=== PATIENT | female | born 1985 | race Caucasian/White ===

== ENCOUNTER → 2023-04-24 | Emergency (ER) | payer BC ==
[~2023-04-24] MED LIST: DIAZEPAM 5 MG TABLET ONE; KETOROLAC 30 MG/ML INJ ONE; MORPHINE 4 MG/ML SYR ONE; NA CHLORIDE 0.9% 1,000 ML ONE; ONDANSETRON 4 MG/2 ML VIAL ONE; dexAMETHasone 10 MG/ML VIAL ONE
[2023-04-24 14:16] LABS: Specific Gravity 1.021 (1.005-1.030)
[2023-04-24 14:34] LABS: Absolute Lymphocytes (CBC) 2.1 K/uL (0.7-4.9); Hematocrit 41.7 % (36.0-45.0); Lymphocytes % 24.4 % (15.3-44.8); MCV 92.9 fL (80-100); MPV 7.9 fL (7.6-11.3); Platelets 300 thou/uL (152-406); RBC Red Blood Cell Count 4.49 M/uL (3.86-4.86)
[2023-04-24 14:52] LABS: Albumin 3.9 g/dL (3.4-5.0); Bilirubin Total 1.7 mg/dL (0.2-1.0); Potassium 3.7 mEq/L (3.5-5.1); Protein, Total 7.6 g/dL (6.4-8.2)
--- NOTE | 2023-04-24 15:30 | RAD REPORT ---
EXAM DESCRIPTION: CT - Chest Abdomen Pelvis W Cont - 04/24/2023 2:52 pm CLINICAL HISTORY: Chest and abdominal pain COMPARISON: none TECHNIQUE: Computed axial tomography of the chest, abdomen and pelvis was obtained. 100 cc Isovue-30 0 was administered intravenously. Oral contrast was not requested. This limits evaluation of bowel. All CT scans are performed using dose optimization technique as appropriate and may include automated exposure control or mA/KV adjustment according to patient size. FINDINGS: Some of the images are degraded by patient motion artifact. The lungs are clear No mediastinal or hilar lymphadenopathy. No pleural effusion. No pericardial effusion. 7 millimeter low intermediate density lesion right lobe liver. Spleen, pancreas, adrenals and left kidney are unremarkable. A 1 centimeter right renal cyst No evidence of diverticulitis Normal appendix. 2 centimeter left ovarian cyst. No followup imaging recommended. Small amount of free fluid IMPRESSION: 2 centimeter left ovarian cyst with a small amount of free fluid within the pelvis 7 millimeter hepatic lesion nonspecific. Followup liver ultrasound in 3 months is recommended for re- evaluation
--- NOTE | 2023-04-24 16:07 | EDPHYS ---
Physician Documentation [facility] Name: Carolyn Arellano Age: 37 yrs Sex: Female : 1985 Arrival Date: 04/24/2023 Time: 12:45 Bed 11 Private MD: ED Physician Marcel Newton HPI: 04/24 15:52 This 37 yrs old Female presents to ER via Ambulatory with complaints of Back tahmina Pain. 15:52 The patient presents with pain that is acute, and contusion, and decreased range of tahmina motion. The symptoms are located in the right scapular area, right subscapular area and right mid back. Onset: The symptoms/episode began/occurred today. The pain does not radiate. Associated signs and symptoms: The patient has no apparent associated signs or symptoms. The problem was sustained when lifting a dog and twisting. Modifying factors: The patient symptoms are alleviated by remaining still, specific position, the patient symptoms are aggravated by any movement, standing, walking. Severity of symptoms: At their worst the symptoms were moderate, severe, in the emergency department the symptoms are unchanged. The patient has not experienced similar symptoms in the past. Historical: - Allergies: 13:04 No Known Allergies; iw ROS: 15:56 Constitutional: Negative for fever, chills, and weight loss, Eyes: Negative for injury, tahmina pain, redness, and discharge, ENT: Negative for injury, pain, and discharge, Neck: Negative for injury, pain, and swelling, Cardiovascular: Negative for chest pain, palpitations, and edema, Respiratory: Negative for shortness of breath, cough, wheezing, and pleuritic chest pain, Abdomen/GI: Negative for abdominal pain, nausea, vomiting, diarrhea, and constipation, : Negative for injury, bleeding, discharge, and swelling, MS/Extremity: Negative for injury and deformity, Skin: Negative for injury, rash, and discoloration, Neuro: Negative for headache, weakness, numbness, tingling, and seizure, Psych: Negative for depression, anxiety, suicide ideation, homicidal ideation, and hallucinations, Allergy/Immunology: Negative for hives, rash, and allergies, Endocrine: Negative for neck swelling, polydipsia, polyuria, polyphagia, and marked weight changes, Hematologic/Lymphatic: Negative for swollen nodes, abnormal bleeding, and unusual bruising, 15:56 Back: Positive for decreased range of motion, pain at rest, pain with movement, of the right scapular area, right subscapular area and mid back area, Exam: 15:56 Constitutional: This is a well developed, well nourished patient who is awake, alert, tahmina and in no acute distress. Head/Face: Normocephalic, atraumatic. Eyes: Pupils equal round and reactive to light, extra-ocular motions intact. Lids and lashes normal. Conjunctiva and sclera are non-icteric and not injected. Cornea within normal limits. Periorbital areas with no swelling, redness, or edema. ENT: Nares patent. No nasal discharge, no septal abnormalities noted. Tympanic membranes are normal and external auditory canals are clear. Oropharynx with no redness, swelling, or masses, exudates, or evidence of obstruction, uvula midline. Mucous membranes moist. Neck: Trachea midline, no thyromegaly or masses palpated, and no cervical lymphadenopathy. Supple, full range of motion without nuchal rigidity, or vertebral point tenderness. No Meningismus. Chest/axilla: Normal chest wall appearance and motion. Nontender with no deformity. No lesions are appreciated. Cardiovascular: Regular rate and rhythm with a normal S1 and S2. No gallops, murmurs, or rubs. Normal PMI, no JVD. No pulse deficits. Respiratory: Lungs have equal breath sounds bilaterally, clear to auscultation and percussion. No rales, rhonchi or wheezes noted. No increased work of breathing, no retractions or nasal flaring. Abdomen/GI: Soft, non-tender, with normal bowel sounds. No distension or tympany. No guarding or rebound. No evidence of tenderness throughout. Skin: Warm, dry with normal turgor. Normal color with no rashes, no lesions, and no evidence of cellulitis. MS/ Extremity: Pulses equal, no cyanosis. Neurovascular intact. Full, normal range of motion. Neuro: Awake and alert, GCS 15, oriented to person, place, time, and situation. Cranial nerves II-XII grossly intact. Motor strength 5/5 in all extremities. Sensory grossly intact. Cerebellar exam normal. Normal gait. 15:56 Back: pain, that is moderate, of the left scapular area, right scapular area, left subscapular area, right subscapular area, left mid back, right mid back and right low back, ROM is painful, with all movement, with rotation to the right, with rotation to the left, with flexion, with extension, normal spinal alignment noted, CVA tenderness, is absent, muscle spasm, is not present, 15:56 Musculoskeletal/extremity: DVT Exam: No signs of deep vein thrombosis. no pain, no swelling, no tenderness, negative Homans' sign noted on exam, no appreciated bluish discoloration, no erythema, no increased warmth, Vital Signs: 13:02 BP 154 / 88; Pulse 65; Resp 16; Temp 98; Pulse Ox 100% on R/A; Weight 81.65 kg; Height iw 5 ft. 6 in. ; Pain 4/10; 16:09 BP 106 / 71; Pulse 55; Resp 16; Temp 97.6; Pulse Ox 100% ; iw 13:02 Body Mass Index 29.05 (81.65 kg, 167.64 cm) iw 13:02 Pain Scale: Adult iw MDM: 12:56 Patient medically screened. [facility] 15:58 Differential diagnosis: chronic back pain, Fatigue Fracture Osteoarthritis Renal tahmina Infarction ruptured disc, Scoliosis sprain. Data reviewed: vital signs, nurses notes, lab test result(s), radiologic studies, CT scan. Consideration of Admission/Observation Escalation of care including admission/observation considered. I considered the following discharge prescriptions or medication management in the emergency department Medications were administered in the Emergency Department. See MAR. Test considered but Not performed: EKG: no ekg necessary. Care significantly affected by the following chronic conditions: nothing. 04/24 13:08 Order name: Test, Urine; Complete Time: 15:47 04/24 13:52 Order name: CBC with Diff; Complete Time: 15:47 [facility] 04/24 13:52 Order name: Comprehensive Metabolic Panel; Complete Time: 15:47 [facility] 04/24 13:52 Order name: CT Chest, Abdomen, Pelvis - W/Contrast; Complete Time: 15:47 [facility] Administered Medications: 14:33 Drug: Ondansetron IVP 4 mg IVP once; over 2 minutes Route: IVP; Site: right antecubital;iw 14:33 Drug: Decadron - Dexamethasone IVP 10 mg IVP once Route: IVP; Site: right antecubital; iw 14:33 Drug: Ketorolac IVP 30 mg IVP once Route: IVP; Site: right antecubital; iw 14:37 Drug: NS 0.9% IV 1000 ml IV at 1 bolus Per protocol; 1000 mL bolus Route: IV; Rate: 1 iw bolus; Site: right antecubital; 14:37 Drug: morphine IVP or IV 4 mg IVP once over 4 mins Route: IVP; Infused Over: 4 mins; iw Site: right antecubital; 14:38 Drug: Diazepam PO 10 mg PO once Route: PO; iw Disposition Summary: 04/24/23 16:07 Discharge Ordered Notes: Location: Home tahmina Problem: new tahmina Symptoms: have improved tahmina Condition: Stable tahmina Diagnosis - Unspecified symptoms and signs involving the musculoskeletal system tahmina - Strain of muscle and tendon of back wall of thorax tahmina Followup: tahmina - With: Private Physician - When: 2 - 3 days - Reason: Recheck today's complaints, Continuance of care, Re-evaluation by your physician Discharge Instructions: - Discharge Summary Sheet tahmina - Muscle Strain tahmina - Musculoskeletal Pain tahmina - Thoracic Strain tahmina - Thoracic Strain, [id number] tahmina - Muscle Strain, [id number] tahmina Forms: - Medication Reconciliation Form tahmina - Thank You Letter tahmina - Antibiotic Education tahmina - Prescription Opioid Use tahmina - Patient Portal Instructions tahmina - Leadership Thank You Letter tahmina - Work release form iw Prescriptions: - acetaminophen-codeine 300-30 mg Oral tablet - take 2 tablet ORAL route 4 times per day; 24 tablet; Refills: 0, Product tahmina Selection Permitted - dexamethasone 2 mg Oral tablet - take 1 tablet ORAL route every 12 hours; 10 tablet; Refills: 0, Product tahmina Selection Permitted - diclofenac sodium 50 mg Oral tablet, delayed release (enteric coated) - take 1 tablet ORAL route every 12 hours as needed for pain; 20 tablet; Refills: tahmina 0, Product Selection Permitted - Valium 5 mg Oral Tablet - take 1 tablet ORAL route every 8 hours As needed; 20 tablet; Refills: 0, [facility] Product Selection Permitted Signatures: Dispatcher [employer] Marcel Rodriguez MD MD cha Williams, Irene RN RN iw
--- NOTE | 2023-04-24 16:07 | ER ---
Nurse's Notes [facility] Name: Carolyn Arellano Age: 37 yrs Sex: Female : 1985 Arrival Date: 04/24/2023 Time: 12:45 Bed 11 Private MD: Diagnosis: Unspecified symptoms and signs involving the musculoskeletal system;Strain of muscle and tendon of back wall of thorax Presentation: 04/24 13:02 Chief complaint: Patient states: muscle spasms started around an hour ago , no trauma iw beside carrying dog , pt report pain to mid back from right to left, states spasms hit every few minutes. Coronavirus screen: At this time, the client does not indicate any symptoms associated with coronavirus-19. Ebola Screen: Patient negative for fever greater than or equal to 101.5 degrees Fahrenheit, and additional compatible Ebola Virus Disease symptoms Patient denies exposure to infectious person. Patient denies travel to an Ebola-affected area in the 21 days before illness onset. No symptoms or risks identified at this time. Initial Sepsis Screen: Does the patient meet any 2 criteria? No. Patient's initial sepsis screen is negative. Does the patient have a suspected source of infection? No. Patient's initial sepsis screen is negative. Risk Assessment: Do you want to hurt yourself or someone else? Patient reports no desire to harm self or others. Onset of symptoms was April 24, 2023. 13:02 Method Of Arrival: Ambulatory iw 13:02 Acuity: SASHA 3 iw Historical: - Allergies: 13:04 No Known Allergies; iw Screenin:16 [facility] ED Fall Risk Assessment (Adult) Score/Fall Risk Level 0 - 2 = Low Risk. iw 16:09 Abuse screen: Denies threats or abuse. Denies injuries from another. Nutritional iw screening: No deficits noted. Tuberculosis screening: No symptoms or risk factors identified. Assessment: 13:15 General: Appears in no apparent distress. Behavior is calm, cooperative. Pain: iw Complains of pain in left mid back and right mid back. Neuro: Level of Consciousness is awake, alert, obeys commands, Oriented to person, place, time, situation, Moves all extremities. Full function. Cardiovascular: Patient's skin is warm and dry. Respiratory: Respiratory effort is even, unlabored, Respiratory pattern is regular, symmetrical. GI: Abdomen is non-distended. Derm: Skin is intact, is healthy with good turgor. Musculoskeletal: Range of motion: intact in all extremities, Reports pain in back. 16:09 Reassessment: Patient appears in no apparent distress at this time. Patient states iw feeling better. Patient states symptoms have improved. Vital Signs: 13:02 BP 154 / 88; Pulse 65; Resp 16; Temp 98; Pulse Ox 100% on R/A; Weight 81.65 kg; Height iw 5 ft. 6 in. ; Pain 4/10; 16:09 BP 106 / 71; Pulse 55; Resp 16; Temp 97.6; Pulse Ox 100% ; iw 13:02 Body Mass Index 29.05 (81.65 kg, 167.64 cm) iw 13:02 Pain Scale: Adult iw ED Course: 12:47 Patient arrived in ED. rg4 12:56 Marcel Newton MD is Attending Physician. tahmina 13:04 Triage completed. iw 13:14 Sheela Burciaga, RN is Primary Nurse. iw 13:14 Arm band placed on. iw 14:07 Test, Urine Sent. iw 14:14 Comprehensive Metabolic Panel Sent. bc6 14:14 CBC with Diff Sent. bc6 14:14 Test, Urine Sent. bc6 14:14 Inserted saline lock: 20 gauge in left antecubital area, using aseptic technique. Blood bc6 collected. 14:53 CT Chest, Abdomen, Pelvis - W/Contrast In Process Unspecified. EDMS 16:10 Patient has correct armband on for positive identification. iw 16:58 No provider procedures requiring assistance completed. IV discontinued, intact, iw bleeding controlled, No redness/swelling at site. Pressure dressing applied. Administered Medications: 14:33 Drug: Ondansetron IVP 4 mg IVP once; over 2 minutes Route: IVP; Site: right antecubital;iw 14:33 Drug: Decadron - Dexamethasone IVP 10 mg IVP once Route: IVP; Site: right antecubital; iw 14:33 Drug: Ketorolac IVP 30 mg IVP once Route: IVP; Site: right antecubital; iw 14:37 Drug: NS 0.9% IV 1000 ml IV at 1 bolus Per protocol; 1000 mL bolus Route: IV; Rate: 1 iw bolus; Site: right antecubital; 14:37 Drug: morphine IVP or IV 4 mg IVP once over 4 mins Route: IVP; Infused Over: 4 mins; iw Site: right antecubital; 14:38 Drug: Diazepam PO 10 mg PO once Route: PO; iw Medication: 13:15 VIS not applicable for this client. iw Outcome: 16:07 Discharge ordered by . tahmina 16:58 Discharged to home ambulatory, with family, iw 16:58 Condition: good 16:58 Discharge instructions given to patient, family, Instructed on Demonstrated understanding of instructions, follow-up care, medications, Prescriptions given X 4, 16:58 Patient left the ED. iw Signatures: Dispatcher [employer] EDDE Marcel Newton MD MD cha Williams, Irene, RN RN iw Talia Franklin rg4 Jayleen Umaña bc6 Corrections: (The following items were deleted from the chart) 13:15 13:02 Chief complaint: Patient states: muscle spasms started around an hour ago , no iw trauma beside carrying dog iw
[2023-04-24 18:45] VITALS: BP 106/71; TEMP 97.6; O2SAT 100
== END ==
LOC: ER 12:45
DX: S29.012A Strain of muscle and tendon of back wall of thorax, initial encounter (principal); R29.91 Unspecified symptoms and signs involving the musculoskeletal system; X50.0XXA Overexertion from strenuous movement or load, initial encounter; X50.9XXA Other and unspecified overexertion or strenuous movements or postures, initial encounter; Y93.89 Activity, other specified; Y92.9 Unspecified place or not applicable
CPT/HCPCS: 85025; 36415; 81025; 80053; 71260; 74177; 96375; 96374; 99284; Q9967; J1100; J2405; J7030

== ENCOUNTER 2024-11-22 19:31 | Emergency (ER) | payer BC ==
[2024-11-22] MEDS ORDERED: ONDANSETRON 4 MG (ODT) TAB ONE (20:12)
[2024-11-22] MEDS ORDERED: SMZ./TMP. 800/160 MG TABLET ONE (20:12)
[2024-11-22] MEDS ORDERED: TDAP (DIPHTH,PERTUSS(ACELL),TET VAC) 0.5 ML VIAL IMVAC ONE (20:12)
[2024-11-22] MEDS ORDERED: LIDOCAINE 1% 20 ML MDV ONE ×2 (20:12→21:46)
[2024-11-22] MEDS ORDERED: CEFAZOLIN SODIUM 1 GM/VIAL ONE (20:12)
[2024-11-22] MEDS ORDERED: NA CHLORIDE 0.9% 100 ML ONE (20:13)
[2024-11-22] MEDS ORDERED: KETOROLAC 30 MG/ML INJ ONE (20:13)
--- NOTE | 2024-11-22 21:01 | RAD REPORT ---
Exam:Forearm Right Clinical history: Right forearm pain Findings: No radiopaque foreign body not seen. No fracture noted. Small density abutting the anterior aspect of the distal humerus may represent an exostosis.
--- NOTE | 2024-11-22 21:03 | RAD REPORT ---
Exam:Hand Right 3 View HISTORY: Right hand pain FINDINGS: No fracture or dislocation seen A radiopaque foreign body not seen
[2024-11-22] MEDS ORDERED: LORazepam 2 MG/ML VIAL ONE (21:16)
--- NOTE | 2024-11-22 22:14 | EDPHYS ---
Physician Documentation [facility] Name: Carolyn Arellano Age: 39 yrs Sex: Female : 1985 Arrival Date: 11/22/2024 Time: 19:31 Bed 16 Private MD: ED Physician Toño Randolph HPI: 11/22 19:41 This 39 yrs old Other Race Female presents to ER via Unassigned with complaints of Dog sp4 Bite. 20:05 Right hand injury - dog bite . sp4 11/23 06:14 Patient presents with multiple dog bites to bilateral hands. Patient reports her own sp4 dog accidentally bit her. Patient's dog is vaccinated for rabies.. 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 - Infectious Disease History:: Denies. - Social history:: Smoking status: Patient denies any tobacco usage or history of. Patient uses alcohol, on a daily basis. Patient/guardian denies using street drugs, IV drugs. - Family history:: not pertinent. ROS: 11/23 06:14 Constitutional: Negative for fever, chills, and weight loss, positive for bilateral dog sp4 bites All other systems are negative, Exam: 06:14 Constitutional: This is a well developed, well nourished patient who is awake, alert, sp4 and in no acute distress. Head/Face: Normocephalic, atraumatic. Eyes: Pupils equal round and reactive to light, extra-ocular motions intact. Lids and lashes normal. Conjunctiva and sclera are not injected. Cornea within normal limits. Periorbital areas with no swelling, redness, or edema. ENT: Nares patent. No nasal discharge, no septal abnormalities noted. Tympanic membranes are normal and external auditory canals are clear. Oropharynx with no redness, swelling, or masses, exudates, or evidence of obstruction, uvula midline. Mucous membranes moist. Neck: Trachea midline, no thyromegaly or masses palpated, and no cervical lymphadenopathy. Supple, full range of motion without nuchal rigidity, or vertebral point tenderness. Chest/axilla: Normal chest wall appearance and motion. Nontender with no deformity. No lesions are appreciated. Cardiovascular: Regular rate and rhythm with a normal S1 and S2. No gallops, murmurs, or rubs. No pulse deficits. Respiratory: Lungs have equal breath sounds bilaterally, clear to auscultation and percussion. No rales, rhonchi or wheezes noted. No increased work of breathing, no retractions or nasal flaring. Abdomen/GI: Soft, with normal bowel sounds. No distension or tympany. No guarding or rebound. No evidence of tenderness throughout. Back: No spinal tenderness. No costovertebral tenderness. Skin: Warm, dry with normal turgor. Normal color with no rashes, no lesions, and no evidence of cellulitis. Multiple abrasions and lacerations secondary to dog bite MS/ Extremity: Pulses equal, no cyanosis. Neurovascular intact. Full, normal range of motion. Right index finger laceration from a dog bite, right middle finger laceration secondary to dog bite, left thumb laceration secondary to dog bite. Multiple abrasions as well Neuro: Awake and alert, GCS 15, oriented to person, place, time, and situation. Cranial nerves II-XII grossly intact. Motor strength 5/5 in all extremities. Sensory grossly intact. Psych: Awake, alert, with orientation to person, place and time. Behavior, mood, and affect are within normal limits Vital Signs: 11/22 19:43 BP 122 / 86; Pulse 98; Resp 20; Pulse Ox 100% ; Pain 2/10; jj7 22:11 BP 106 / 67; Pulse 72; Resp 20; Pulse Ox 100% ; Weight 68.04 kg; Height 5 ft. 6 in. ; j7 22:11 Body Mass Index 24.21 (68.04 kg, 167.64 cm) [facility] 19:43 Pain Scale: Adult [facility] Janis Coma Score: 11/23 06:14 Eye Response: spontaneous(4). Motor Response: obeys commands(6). Verbal Response: sp4 oriented(5). Total: 15. Laceration: 11/22 22:08 Wound Repair of 5cm ( 2.0in ) subcutaneous laceration to dorsal aspect of middle sp4 phalanx of right middle finger and dorsal aspect of proximal phalanx of right middle finger - Right middle finger ulnar side 5 cm long. Irregularly shaped.. Minimal bleeding noted.. Gross contamination.. Distal neuro/vascular/tendon intact. Anesthesia: Digital block administered with 10 mls of 1% lidocaine. Wound prep: Extensive cleansing by me, Copious irrigation. Skin closed with 13 6-0 Prolene using interrupted sutures and sterile technique. Dressed with 4x4's, Kerlix, non-adherent dressing. Patient tolerated well. 22:08 Wound Repair of 1cm ( 0.4in ) subcutaneous laceration to dorsal aspect of middle sp4 phalanx of right index finger. Irregularly shaped.. Gross contamination.. Distal neuro/vascular/tendon intact. Anesthesia: Wound infiltrated with 2 mls of 1% lidocaine. Wound prep: Moderate cleansing by me, Copious irrigation. Skin closed with 2 6-0 Prolene using interrupted sutures and sterile technique. Dressed with 4x4's, Kerlix, non-adherent dressing. Patient tolerated well. 22:08 Wound Repair of 1cm ( 0.4in ) subcutaneous laceration to palmar aspect of distal sp4 phalanx of left thumb. Irregularly shaped.. Minimal bleeding noted.. Gross contamination.. Distal neuro/vascular/tendon intact. Anesthesia: Wound infiltrated with 5 mls of 1% lidocaine. Wound prep: Moderate cleansing by me, Copious irrigation. Skin closed with 2 4-0 Prolene using interrupted sutures and sterile technique. Dressed with 4x4's, Kerlix, non-adherent dressing. Patient tolerated well. MDM: 20:05 Medical Screening Exam initiated 11/23 06:14 Differential diagnosis: superficial laceration, tendon injury, vascular injury, sp4 cellulitis, Puncture wound. Rabies Status: Rabies immunization is not indicated. Data reviewed: vital signs, nurses notes, old medical records, radiologic studies, plain films. Consideration of Admission/Observation Escalation of care including admission/observation considered. ED course: Lacerations repaired. Patient stable for discharge home. Advised suture removal after 14 days. Patient prescribed Bactrim and Keflex for wound infection prophylaxis. 11/22 20:04 Order name: Hand Right 3 View XRAY; Complete Time: 21:11 sp4 11/22 20:05 Order name: Forearm Right XRAY; Complete Time: 21:11 sp4 11/22 20:00 Order name: Saline Lock; Complete Time: 20:58 sp4 11/22 20:00 Order name: Dressing - Wound; Complete Time: 22:14 sp4 11/22 20:00 Order name: Gloves, Sterile; Complete Time: 20:03 sp4 11/22 20:00 Order name: Setup Suture Tray; Complete Time: 20:03 sp4 Administered Medications: 11/22 20:23 Drug: Trimethoprim-Sulfamethoxazole PO (160 mg-800 mg (DS) 1 tablet PO once Route: PO; me1 20:59 Follow up: Response: No adverse reaction me1 20:23 Drug: Ondansetron PO 4 mg PO once Route: PO; me1 20:58 Follow up: Response: No adverse reaction; Nausea is decreased me1 20:23 Drug: Boostrix Tdap IM 0.5 ml IM once; as a single dose Route: IM; Site: left deltoid; me1 20:58 Follow up: Response: No adverse reaction me1 20:24 Drug: ceFAZolin IVPB 1 grams 50 ml IVPB once over 30 mins Volume: 50 ml; Route: IVPB; me1 Infused Over: 30 mins; Site: left antecubital; 20:59 Follow up: Response: No adverse reaction; IV Status: Completed infusion me1 20:58 Drug: Ketorolac IVP 30 mg IVP once Route: IVP; Site: left antecubital; me1 20:59 Follow up: Response: No adverse reaction; Pain is decreased me1 21:23 Drug: Lidocaine Infiltration (1 %) 20 ml 20 ml Infiltration once; to bedside {Note: me1 Administered by Dr Randolph.} Volume: 20 ml; Route: Infiltration; 21:32 Follow up: Response: No adverse reaction; Pain is decreased me1 21:23 Drug: Ativan IVP 1 mg IVP once Route: IVP; Site: left antecubital; me1 21:32 Follow up: Response: No adverse reaction; Anxiety decreased me1 Disposition Summary: 11/22/24 22:13 Discharge Ordered Notes: Suture removal After 14 days , NO less than 14 days Location: Home sp4 Problem: new sp4 Symptoms: have improved sp4 Condition: Stable sp4 Diagnosis - Multiple dog bites, sp4 - Right hand dog bite, right hand middle finger laceration secondary to dog bite, sp4 right hand index finger laceration secondary to dog bite, left thumb skin laceration secondary to dog bite Followup: sp4 - With: Private Physician - When: After 14 days - Reason: Recheck today's complaints Discharge Instructions: - Discharge Summary Sheet sp4 - Animal Bite, Adult, [id number] sp4 - Laceration Care, Adult, [id number] sp4 Forms: - Patient Portal Instructions sp4 Prescriptions: - meloxicam 15 mg Oral tablet - take 1 tablet ORAL route daily PRN pain; 30 tablet; Refills: 0, Product sp4 Selection Permitted - Cephalexin 500 mg Oral Capsule - take 1 capsule ORAL route every 12 hours for 10 days; 20 capsule; Refills: 0, sp4 Product Selection Permitted - Bactrim DS 800-160 mg Oral Tablet - take 1 tablet ORAL route every 12 hours for 10 days; 20 tablet; Refills: 0, sp4 Product Selection Permitted - ondansetron 8 mg Oral Tablet,disintegrating - take 1 tablet ORAL route every 8 hours PRN nausea; 30 tablet; Refills: 0, sp4 Product Selection Permitted Signatures: Dispatcher [employer] Radha Medley RN RN jj7 Toño Randolph MD MD sp4 Breanna Waldrop RN RN me1
--- NOTE | 2024-11-22 22:14 | ER ---
Nurse's Notes [facility] Name: Carolyn Arellano Age: 39 yrs Sex: Female : 1985 Arrival Date: 11/22/2024 Time: 19:31 Bed 16 Private MD: Diagnosis: Multiple dog bites,;Right hand dog bite, right hand middle finger laceration secondary to dog bite, right hand index finger laceration secondary to dog bite, left thumb skin laceration secondary to dog bite Presentation: 11/22 19:43 Chief complaint: Patient states: WAS WALKING HER DOG AND WAS ATTACKED BY A RANDOM DOG. jj7 BIT ON HER RIGHT ARM AND HAS PUNCTURE WOUND TO LEFT THUMB. Coronavirus screen: At this time, the client does not indicate any symptoms associated with coronavirus-19. Initial Sepsis Screen: Does the patient meet any 2 criteria? No. Patient's initial sepsis screen is negative. Does the patient have a suspected source of infection? No. Patient's initial sepsis screen is negative. Risk Assessment: Do you want to hurt yourself or someone else? Patient reports no desire to harm self or others. Onset of symptoms was November 22, 2024. 19:43 Method Of Arrival: Ambulatory [facility] 19:43 Acuity: SASHA 4 [facility] 22:23 Ebola Screen: No symptoms or risks identified at this time. [facility] Triage Assessment: 19:47 Bite description: bite sustained to right hand, left hand and right arm by a dog, jj7 animal information: Appearance: appeared well, is superficial, from animal, vaccination(s) is not up to date was sustained 1-2 hours ago. Animal status: unknown and not captured, Animal control has not been notified. General: Appears in no apparent distress. uncomfortable, Behavior is calm, cooperative, appropriate for age. Pain: Complains of pain in right hand, left hand and right arm. Derm: Skin LAC TO LEFT MIDDLE FINGER, PUNCTURE WOULD TO LEFT THUMB. ABRASIONS TO RIGHT ARM Reports. 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 - Infectious Disease History:: Denies. - Social history:: Smoking status: Patient denies any tobacco usage or history of. Patient uses alcohol, on a daily basis. Patient/guardian denies using street drugs, IV drugs. - Family history:: not pertinent. Screenin:55 [facility] ED Fall Risk Assessment (Adult) History of falling in the last 3 months, me1 including since admission No falls in past 3 months (0 pts) Confusion or Disorientation No (0 pts) Intoxicated or Sedated No (0 pts) Impaired Gait No (0 pts) Mobility Assist Device Used No (0 pt) Altered Elimination No (0 pt) Score/Fall Risk Level 0 - 2 = Low Risk Maintained a safe environment, Provided non-skid footwear, Hourly rounding (assess needs \T\ fall precautionary measures) done. Abuse screen: Denies threats or abuse. Nutritional screening: No deficits noted. Tuberculosis screening: No symptoms or risk factors identified. Assessment: 19:55 General: Appears uncomfortable, Behavior is cooperative, appropriate for age, anxious, me1 Reports her dogs were fighting and she tried to break up the fight and she got bit. Puncture wound to left thumb, laceration down side of right second digit and bruising to right forearm without broken skin. Pain: Complains of pain in right arm and left hand and right hand Pain does not radiate. Pain currently is 6 out of 10 on a pain scale. Quality of pain is described as throbbing, Pain began suddenly, Is continuous. Neuro: Level of Consciousness is awake, alert, obeys commands, Oriented to person, place, time, situation, Appropriate for age. Cardiovascular: Patient's skin is warm and dry. Respiratory: Airway is patent Respiratory effort is even, unlabored, Respiratory pattern is regular, symmetrical. GI: No signs and/or symptoms were reported involving the gastrointestinal system. : No signs and/or symptoms were reported regarding the genitourinary system. EENT: No signs and/or symptoms were reported regarding the EENT system. Derm: Wound noted palmar aspect of middle phalanx of right middle finger and palmar aspect of proximal phalanx of right middle finger, left thumb Wound is puncture wound to left thumb. laceration to right middle finger. Derm: Skin is healthy with good turgor, Skin is normal. Musculoskeletal: Reports pain in right arm and left hand and right hand. Injury Description: Bite sustained to right arm and left hand and right hand caused by a dog, is full thickness. 20:27 General: Called [employer], rolled over to [facility]'s office, spoke me1 with Dora and reported dog bite. Dora requested that the patient call the PD when she gets home so they can come do the report. . 22:11 Reassessment: PT REPORT RECEIVED FROM GISSELL PINON. ASSUMED CARE OF PT. PT SITTING IN [facility] BED. WOUNDS ALREADY DRESSED. DRESSING CLEAN AND DRY. VS STABLE. SPOUSE AT BEDSIDE Patient states feeling better. Vital Signs: 19:43 BP 122 / 86; Pulse 98; Resp 20; Pulse Ox 100% ; Pain 2/10; [facility] 22:11 BP 106 / 67; Pulse 72; Resp 20; Pulse Ox 100% ; Weight 68.04 kg; Height 5 ft. 6 in. ; [facility] 22:11 Body Mass Index 24.21 (68.04 kg, 167.64 cm) [facility] 19:43 Pain Scale: Adult [facility] Janis Coma Score: 11/23 06:14 Eye Response: spontaneous(4). Motor Response: obeys commands(6). Verbal Response: sp4 oriented(5). Total: 15. ED Course: 11/22 19:32 Patient arrived in ED. 6 19:41 Tñoo Randolph MD is Attending Physician. sp4 19:47 Triage completed. 7 19:47 Arm band placed on right wrist. Patient placed in an exam room, on a stretcher. [facility] 19:51 Gissell Waldrop, KATHRIN is Primary Nurse. me1 19:55 Patient has correct armband on for positive identification. Bed in low position. Call me1 light in reach. Side rails up X2. Provided Education on: POC. Verbalized understanding.. Client placed on continuous cardiac and pulse oximetry monitoring. NIBP monitoring applied. Pulse ox on. NIBP on. 19:55 No provider procedures requiring assistance completed. me1 20:14 Inserted saline lock: 22 gauge in left antecubital area, using aseptic technique. oe Flushed with 10 mL NS. 20:52 Hand Right 3 View XRAY In Process Unspecified. EDMS 20:52 Forearm Right XRAY In Process Unspecified. EDMS 22:23 IV discontinued, intact, bleeding controlled, No redness/swelling at site. Pressure jj7 dressing applied. Administered Medications: 20:23 Drug: Trimethoprim-Sulfamethoxazole PO (160 mg-800 mg (DS) 1 tablet PO once Route: PO; me1 20:59 Follow up: Response: No adverse reaction me1 20:23 Drug: Ondansetron PO 4 mg PO once Route: PO; me1 20:58 Follow up: Response: No adverse reaction; Nausea is decreased me1 20:23 Drug: Boostrix Tdap IM 0.5 ml IM once; as a single dose Route: IM; Site: left deltoid; me1 20:58 Follow up: Response: No adverse reaction me1 20:24 Drug: ceFAZolin IVPB 1 grams 50 ml IVPB once over 30 mins Volume: 50 ml; Route: IVPB; me1 Infused Over: 30 mins; Site: left antecubital; 20:59 Follow up: Response: No adverse reaction; IV Status: Completed infusion me1 20:58 Drug: Ketorolac IVP 30 mg IVP once Route: IVP; Site: left antecubital; me1 20:59 Follow up: Response: No adverse reaction; Pain is decreased me1 21:23 Drug: Lidocaine Infiltration (1 %) 20 ml 20 ml Infiltration once; to bedside {Note: me1 Administered by Dr Randolph.} Volume: 20 ml; Route: Infiltration; 21:32 Follow up: Response: No adverse reaction; Pain is decreased me1 21:23 Drug: Ativan IVP 1 mg IVP once Route: IVP; Site: left antecubital; me1 21:32 Follow up: Response: No adverse reaction; Anxiety decreased me1 Medication: 19:55 Vaccine Information Statement (VIS) provided today. Questions and/or concerns me1 addressed. VIS edition date: November 10, 2020. Outcome: 22:13 Discharge ordered by MD. barrientos 22:23 Discharged to home ambulatory, with significant other, [email or web address] 22:23 Condition: improved 22:23 Discharge instructions given to patient, Instructed on discharge instructions, follow up and referral plans. medication usage, Demonstrated understanding of instructions, follow-up care, medications, Prescriptions given X 4, 22:23 Patient left the ED. [email or web address] Signatures: Dispatcher [employer] EDWY Rich Acuña Jennifer jj6 Radha Sewell RN RN jj7 Toño Randolph MD MD sp4 Gissell Waldrop RN RN me1 Corrections: (The following items were deleted from the chart) 20: 20:27 General: Appears me1 me1 23:10 23:09 Patient left the ED. jj7 jj7
[2024-11-23 07:21] VITALS: O2SAT 100
[2024-11-23 07:23] VITALS: BP 106/67
== END 2024-11-22 23:09 | disposition home or self-care (01) ==
LOC: ER 19:31
DX: S61.212A Laceration without foreign body of right middle finger without damage to nail, initial encounter (principal); S61.012A Laceration without foreign body of left thumb without damage to nail, initial encounter; W54.0XXA Bitten by dog, initial encounter; Z23 Encounter for immunization
CPT/HCPCS: 96365; 73130; 73090; 90715; 96375; 96372; 99284; 13132; 13133; Q0162; J2003 ×2; J0690